=== PATIENT | male | born 2000 | race African-American/Black ===

== ENCOUNTER 2020-10-18 06:26 | Emergency (ER) | payer OTHER ==
[~2020-10-18] VITALS: Ht 175.3 cm; Wt 90.7 kg
[2020-10-18 06:44] LABS: ABSOLUTE NEUTROPHILS 8.8 thou/uL (1.4-8.2); BASOPHILS 0.8 % (0.0-2.0); EOSINOPHILS 0.3 % (0.0-3.0); HEMATOCRIT 43.8 % (42.0-52.0); HEMOGLOBIN 14.9 gm/dL (14.0-18.0); LYMPHOCYTES 17.9 % (24.0-44.0); MCH 32.2 pg (26.0-34.0); MCHC 34.1 g/dL (28.0-37.0); MCV 94.4 fL (80.0-100.0); MONOCYTES 5.6 % (1.0-8.0); PLATELET COUNT 218 thou/uL (150-400); POLYS 75.4 % (36.0-66.0); RBC 4.64 mil/uL (4.50-6.00); RDW 12.6 % (10.5-14.5); WBC 11.7 thou/uL (4.0-11.0)
[2020-10-18 06:55] LABS: CREATININE 1.3 mg/dL (0.7-1.3); POTASSIUM 3.7 mmol/L (3.5-5.1)
[2020-10-18] MEDS ORDERED: NOHOMEMEDICATIONS (07:02)
[2020-10-18 15:11] VITALS: BP 135/115
== END 2020-10-18 15:11 | disposition home or self-care (01) ==
LOC: ER 06:26
PROVIDERS: Emergency Medicine
DX: F10.129 Alcohol abuse with intoxication, unspecified (principal); Y90.8 Blood alcohol level of 240 mg/100 ml or more; Z88.8 Allergy status to other drugs, medicaments and biological substances